=== PATIENT | female | born 1995 | race African-American/Black ===

== ENCOUNTER 2017-08-18 19:28 | Emergency (ER) | payer OTHER, MEDICAID ==
[~2017-08-18] VITALS: Ht 152.4 cm; Wt 63.0 kg
[2017-08-19 05:26] VITALS: BP 118/68
== END 2017-08-19 06:28 | disposition home or self-care (01) ==
LOC: ER 20:01
DX: J06.9 Acute upper respiratory infection, unspecified (principal); H57.8 Other specified disorders of eye and adnexa
CPT/HCPCS: 87804; 99284